=== PATIENT | male | born 1980 | race African-American/Black ===

== ENCOUNTER 2018-06-21 00:01 | Emergency (ER) | payer OTHER ==
--- NOTE | 2018-06-21 00:30 | ED ---
Psychiatric Complaint - HPI Summary HPI Summary: This patient is a 37 year old male presenting to [facility] with a chief complaint of psych complaint since earlier today. Patient states that he has a previous dx of schizophrenia and today, he has starting hearing voices again. Patient states that he feels that the medication that he has been on may not be working anymore. Patient states that he recognizes the voices as people that he knows, but is not in contact with. Patient additionally notes that he hasnt been sleeping very well. Symptoms aggravated by nothing. Symptoms alleviated by nothing. Patient denies visual hallucinations. - History Of Current Complaint Chief Complaint: EDMentalHealth Time Seen by Provider: 06/21/18 00:22 Hx Obtained From: Patient Onset/Duration: Lasting Days - 1, Still Present Timing: Constant Severity Currently: Mild Aggravating Factor(s): Nothing Alleviating Factor(s): Nothing Associated Signs And Symptoms: Positive: Hallucinating - auditory Related History: Positive For: Prior Psychiatric Issues - schizophrenia - Allergies/Home Medications Allergies/Adverse Reactions: Allergies Allergy/AdvReac Type Severity Reaction Status Date / Time No Known Allergies Allergy Verified 03/08/16 18:28 Home Medications: Home Medications ARIPiprazole [Abilify Maintena] 400 mg IM MONTHLY 06/21/18 [History Confirmed ] Benztropine Mesylate 2 mg PO BID 06/21/18 [History Confirmed 06/21/18] PMH/Surg Hx/FS Hx/Imm Hx Previously Healthy: No Endocrine/Hematology History: Denies: Hx Diabetes, Hx Thyroid Disease Cardiovascular History: Denies: Hx Hypertension Respiratory History: Denies: Hx Asthma, Hx Chronic Obstructive Pulmonary Disease (COPD) GI History: Denies: Hx Ulcer Psychiatric History: Reports: Hx Inpatient Treatment - [facility] 2007, Hx Schizophrenia Denies: Hx Eating Disorder, Hx of Violent Episodes Against Others Infectious Disease History: No Infectious Disease History: Denies: Hx Hepatitis, Hx Human Immunodeficiency Virus (HIV), History Other Infectious Disease, Traveled Outside the [place] in Last 30 Days - Family History Family History: family history of dental caries and infections - Social History Occupation: Unemployed Alcohol Use: Occasionally Hx Substance Use: Yes Substance Use Type: Reports: Marijuana Hx Tobacco Use: Yes Smoking Status (MU): Heavy Every Day Tobacco Smoker Type: Cigarettes Amount Used/How Often: 1/2 PPD Length of Time of Smoking/Using Tobacco: 16+ YEARS Have You Smoked in the Last Year: Yes Review of Systems Negative: Fever Positive: Other - auditory hallucinations All Other Systems Reviewed And Are Negative: Yes Physical Exam - Summary Physical Exam Summary: Appearance: Well-appearing, Well-nourished, lying in bed comfortably Skin: Warm, dry, no obvious rash Eyes: sclera anicteric, no conjunctival pallor ENT: mucous membranes moist, pharynx appears normal Neck: Supple, nontender Respiratory: Clear to auscultation, no signs of respiratory distress Cardiovascular: Normal S1, S2. No murmurs. Normal distal pulses in tibial and radial bilaterally. Abdomen: Soft, nontender, normal active bowel sounds present Musculoskeletal: Normal, Strength/ROM Intact Neurological: A&Ox3, awake and alert, mentation is normal, speech is fluent and appropriate Psychiatric: affect is normal, does not appear anxious or depressed Triage Information Reviewed: Yes Vital Signs On Initial Exam: Initial Vitals Temp Pulse Resp BP Pulse Ox 97.7 F 87 20 124/92 99 06/21/18 00:03 06/21/18 00:03 06/21/18 00:03 06/21/18 00:03 06/21/18 00:03 Vital Signs Reviewed: Yes Diagnostics - Vital Signs Vital Signs Temp Pulse Resp BP Pulse Ox 06/21/18 00:03 97.7 F 87 20 124/92 99 - Laboratory Lab Statement: Any lab studies that have been ordered have been reviewed, and results considered in the medical decision making process. Course/Dx - Course Course Of Treatment: This patient is a 37 year old male presenting to [facility] with a chief complaint of psych complaint since earlier today. Patient states that he has a previous dx of schizophrenia and today, he has starting hearing voices again. Patient states that he feels that the medication that he has been on may not be working anymore. Patient states that he recognizes the voices as people that he knows, but is not in contact with. Patient additionally notes that he hasnt been sleeping very well. Urinalysis Obtained. Patient met with [facility], who cleared him for discharge. Patient will be discharged with a dx of schizophrenia. Patient is advised to follow up with PCP in 3 days. The patient is agreeable with this plan. - Differential Dx/Clinical Impression Provider Diagnosis: Schizophrenia Discharge - Sign-Out/Discharge Documenting (check all that apply): Patient Departure - Discharge Plan Condition: Stable Disposition: HOME Referrals: No Primary Care Phys,NOPCP [Primary Care Provider] - Additional Instructions: Per completion of a mental health evaluation, you are cleared for release and do not require inpatient psychiatric hospitalization at this time. Please go to nearest emergency room or call 911 if safety concerns arise or condition worsens. Contact [place] [phone] Walk-in hours are Wednesday - Wednesday , 9am - 2:30pm or call for appointment Important Phone Numbers: [facility]........... [phone] Suicide Prevention and Crisis Services........................ [phone] National Suicide Prevention Lifeline............................ 767-363-GTNA (4082) [facility]....................... [phone] Alcoholics Anonymous............................................... [facility].............. [phone] [place] [employer].............................................. - Attestation Statements Document Initiated by Scribe: Yes Documenting Scribe: Sherly Araujo Provider For Whom Bradenibe is Documenting (Include Credential): Jozef Morillo MD Scribe Attestation: Sherly Kuhn, scribed for Jozef Morillo MD on 06/21/18 at [id number]. Status of Scribe Document: Ready
[2018-06-21 02:24] LABS: Barbiturates Urine Screen None Detected (None Detect); Benzodiazepine Urine Screen None Detected (None Detect); Urine Cannabinoids Screen Presumptive Positive (None Detect)
[2018-06-21 03:10] VITALS: BP 120/83
== END 2018-06-21 03:09 | disposition home or self-care (01) ==
LOC: ED 00:01
DX: F20.9 Schizophrenia, unspecified (principal); F17.210 Nicotine dependence, cigarettes, uncomplicated
CPT/HCPCS: 36415; 80307; 99283

== ENCOUNTER 2021-06-18 18:08 | Inpatient (IN) ==
[2021-06-18 19:41] LABS: Urine Appearance Clear; Urine Bilirubin Negative (Negative); Urine Blood Negative (Negative); Urine Color Amber; Urine Glucose Negative (Negative); Urine Ketones Trace (Negative); Urine Nitrite Negative (Negative); Urine Protein 1+(30 mg/dL) (Negative); Urine Specific Gravity 1.029 (1.002-1.030); Urine Urobilinogen Negative (Negative)
[2021-06-18 19:47] LABS: Urine Bacteria Absent (Absent); Urine Red Blood Cell 2+(6-10/hpf) (Absent); Urine White Blood Cell Trace(0-5/hpf) (Absent)
[2021-06-18 19:52] LABS: ABS Basophils 0.1 10^3/ul (0-0.2); ABS Eosinophils 0.7 10^3/ul (0-0.6); ABS Lymphocytes 2.2 10^3/ul (1.0-4.8); ABS Monocytes 0.8 10^3/ul (0-0.8); Eosinophil % 6.4 %; Hematocrit 45 % (42-52); Hemoglobin 14.8 g/dL (14.0-18.0); Lymphocyte % 20.2 %; Mean Corpuscular HGB Conc 33 g/dL (31-36); Mean Corpuscular Hemoglobin 30 pg (27-31); Mean Corpuscular Volume 91 fL (80-94); Mean Platelet Volume 7.9 fL (7.4-10.4); Nucleated Red Blood Cells % 0.1; Platelet Count 269 10^3/uL (150-450); Red Blood Count 4.92 10^6 /uL (4.18-5.48); Red Cell Distribution Width 13 % (10-15); White Blood Count 10.8 10^3/uL (3.5-10.8)
[2021-06-18 20:09] LABS: Urine Benzodiazepine Screen None Detected (None Detect); Urine Cannabinoids Screen Presumptive Positive (None Detect); Urine Opiates Screen None Detected (None Detect)
[2021-06-18 20:13] LABS: ALT 22 U/L (7-52); Albumin 4.4 g/dL (3.2-5.2); Albumin/Globulin Ratio 1.6 (1-3); Alkaline Phosphatase 56 U/L (35-149); Blood Urea Nitrogen 17 mg/dL (6-24); CO2 Carbon Dioxide 28 mmol/L (22-32); Calcium 9.5 mg/dL (8.6-10.3); Chloride 105 mmol/L (101-111); Globulin 2.8 g/dL (2-4); Glucose 122 mg/dL (70-100); Sodium 139 mmol/L (135-145); Total Protein 7.2 g/dL (6.4-8.9); eGFR CKD-EPI 86.5 (>60)
[2021-06-18 20:14] LABS: Anion Gap 6 mmol/L (2-11); Potassium 3.8 mmol/L (3.5-5.0)
[2021-06-18 20:15] LABS: AST 22 U/L (13-39)
[2021-06-18 20:41] LABS: Acetaminophen < 15 mcg/mL; Alcohol, S < 13 mg/dL (<13); Salicylate < 2.50 mg/dL (<30)
[2021-06-18 20:55] LABS: TSH Ultra Thyroid Stim Horm 1.38 mcIU/mL (0.34-5.60)
[2021-06-19] MEDS ORDERED: Al Hydrox/Mg Hydrox/Simet LIQ 30 ML UDC PO PRN (01:47)
[2021-06-19] MEDS ORDERED: Nicotine GUM 2MG FRUIT FLAVOR PO PRN (02:00)
[2021-06-19] MEDS: Vitamin THERAPEUTIC TAB PO SCH (09:42)
[2021-06-20 07:59] LABS: HDL Cholesterol 35.9 mg/dL
[2021-06-20] MEDS: Vitamin THERAPEUTIC TAB PO SCH (08:01)
[2021-06-20 08:21] VITALS: BP 97/57
== END 2021-06-20 16:00 | disposition home or self-care (01) | DRG 750 ==
LOC: ED 18:08 → BSU 21:10
PROVIDERS: ADMIT Psychiatry & Neurology Psychiatry; ATTEND Psychiatry & Neurology Psychiatry

== ENCOUNTER 2024-07-08 21:55 | Inpatient (IN) ==
[2024-07-08] MEDS: Haloperidol 5 mg/ml SDV IV/IM 5 MG/ML AMP IM ONE (23:07)
[2024-07-08] MEDS: LORazepam 2 mg VIAL 1 ml IM ONE (23:07)
[2024-07-09 00:04] LABS: ALT 25 U/L (7-52); AST 38 U/L (13-39); Acetaminophen < 15 mcg/mL; Albumin 4.3 g/dL (3.5-5.7); Albumin/Globulin Ratio 1.8 (1-3); Alcohol, S < 13 mg/dL (<13); Alkaline Phosphatase 73 U/L (35-149); Anion Gap 6 mmol/L (2-16); Blood Urea Nitrogen 21 mg/dL (6-24); CO2 Carbon Dioxide 28 mmol/L (22-32); Calcium 9.4 mg/dL (8.6-10.3); Chloride 103 mmol/L (101-111); Creatinine, Serum 1.01 mg/dL (0.67-1.17); Globulin 2.4 g/dL (2-4); Glucose 124 mg/dL (70-100); Potassium 3.9 mmol/L (3.5-5.0); Salicylate < 2.50 mg/dL (<30); Sodium 137 mmol/L (135-145); Total Bilirubin 1.5 mg/dL (0.2-1.0); Total Protein 6.7 g/dL (6.4-8.9)
[2024-07-09 00:17] LABS: ABS Basophils 0.1 10^3/uL (0.0-0.1); ABS Eosinophils 0.2 10^3/uL (0.0-0.5); ABS Lymphocytes 1.9 10^3/uL (1.0-4.8); ABS Neutrophils 10.6 10^3/uL (1.5-7.6); ABS Nucleated RBC 0.01 10^3/ul; Eosinophil % 1.6 %; Hematocrit 40.3 % (38-53); Hemoglobin 13.4 g/dL (13.2-16.3); Lymphocyte % 13.6 %; Mean Corpuscular Hemoglobin 29.9 pg (27-33); Mean Corpuscular Hgb Conc 33.2 g/dL (31-36); Mean Corpuscular Volume 90.2 fL (80-97); Mean Platelet Volume 7.8 fL (7.5-11.2); Platelet Count 254 10^3/uL (150-450); Red Blood Count 4.47 10^6/uL (4.06-5.63); Red Cell Distribution Width 13.5 % (12-17); White Blood Count 13.8 10^3/uL (3.6-10.2)
[2024-07-09 00:19] LABS: TSH Ultra Thyroid Stim Horm 1.93 mcIU/mL (0.34-5.60)
[2024-07-09] MEDS ORDERED: Al Hydrox/Mg Hydrox/Simet LIQ 30 ML UDC PO PRN (01:34)
[2024-07-09 02:49] LABS: Hepatitis B Surface Antigen Nonreactive (Nonreactive)
[2024-07-09 02:59] LABS: HIV 4th Generation Nonreactive (Nonreactive)
[2024-07-09 03:06] LABS: Hepatitis B Surface Ab Not Immune (Immune); Hepatitis C Antibody Negative (Negative)
[2024-07-09 03:26] VITALS: BP 111/68
[2024-07-09] MEDS: Vitamin THERAPEUTIC TAB PO SCH (10:28)
[2024-07-09] MEDS ORDERED: Nicotine GUM 4MG FRUIT FLAVOR PO PRN (12:21)
[2024-07-10 08:21] LABS: HDL Cholesterol 47.4 mg/dL
[2024-07-10] MEDS: Nicotine PATCH 21 MG/24 HR PATCH TRANSDERM SCH (09:35)
== END 2024-07-11 16:31 | disposition home or self-care (01) | DRG 776 ==
LOC: ED 21:55 → EDHOLD 07-09 01:34 → BSU 07-09 01:53
PROVIDERS: ADMIT Psychiatry & Neurology Addiction Psychiatry; ATTEND Student in an Organized Health Care Education/Training Program